=== PATIENT | female | born 1985 | race Two or more races ===

== ENCOUNTER 2022-10-28 15:22 | Emergency (ER) | payer BC, MEDICAID ==
[~2022-10-28] VITALS: Ht 160 cm; Wt 50.0 kg
[2022-10-28 15:29] VITALS: BP 149/93; PULSE 90; RESP 18; TEMP 98; O2SAT 98
[2022-10-29] MEDS ORDERED: NICO-630 TOP (04:46)
[2022-10-29] MEDS ORDERED: DIPH25CA83 PO (04:46)
== END 2022-10-28 16:48 | disposition left against medical advice (07) ==
LOC: ER 15:22
DX: R68.84 Jaw pain (principal); Z53.21 Procedure and treatment not carried out due to patient leaving prior to being seen by health care provider
CPT/HCPCS: 99281

== ENCOUNTER 2022-10-29 04:11 | Emergency (ER) | payer BC, MEDICAID ==
[~2022-10-29] VITALS: Ht 152.4 cm; Wt 34.8 kg
[2022-10-29 04:14] VITALS: BP 167/100; PULSE 97; RESP 16; TEMP 98.4; O2SAT 100
[2022-10-29] MEDS ORDERED: diphenhydrAMINE 25mg capsule PO ONE (04:45)
[2022-10-29] MEDS ORDERED: NICO-630 TOP (04:46)
[2022-10-29] MEDS ORDERED: DIPH25CA83 PO (04:46)
== END 2022-10-29 05:01 | disposition home or self-care (01) ==
LOC: ER 04:12
DX: G47.00 Insomnia, unspecified (principal); F32.A Depression, unspecified
CPT/HCPCS: 99282; Q0163

== ENCOUNTER 2022-11-02 20:28 | Emergency (ER) | payer BC, MEDICAID ==
[~2022-11-02] VITALS: Ht 152.4 cm; Wt 34.6 kg
[~2022-11-02 20:28] MED LIST: DIPH25CA83 PO; NICO-630 TOP
[2022-11-02 20:58] VITALS: BP 164/100; PULSE 83; TEMP 99; O2SAT 18
== END 2022-11-03 00:59 | disposition left against medical advice (07) ==
LOC: ER 20:28
DX: G47.00 Insomnia, unspecified (principal); Z53.21 Procedure and treatment not carried out due to patient leaving prior to being seen by health care provider
CPT/HCPCS: 99281

== ENCOUNTER 2022-11-06 22:10 | Emergency (ER) | payer BC, MEDICAID ==
[~2022-11-06] VITALS: Ht 152.4 cm; Wt 35.7 kg
[2022-11-06 22:18] VITALS: RESP 18; TEMP 98.6
[2022-11-07 03:40] VITALS: BP 125/85; PULSE 80; O2SAT 100
== END 2022-11-07 05:22 | disposition home or self-care (01) ==
LOC: ER 22:11
DX: M79.10 Myalgia, unspecified site (principal); R53.83 Other fatigue
CPT/HCPCS: 99281

== ENCOUNTER 2022-11-07 18:59 | Emergency (ER) | payer BC, MEDICAID ==
[~2022-11-07] VITALS: Ht 152.4 cm; Wt 35.8 kg
[2022-11-07 20:19] VITALS: BP 122/89; PULSE 74; RESP 16; TEMP 97.9; O2SAT 100
== END 2022-11-08 00:43 | disposition home or self-care (01) ==
LOC: ER 19:00
DX: M79.10 Myalgia, unspecified site (principal); R53.83 Other fatigue; Z00.8 Encounter for other general examination
CPT/HCPCS: 99281

== ENCOUNTER 2022-11-08 15:45 | Emergency (ER) | payer BC, MEDICAID | END 2022-11-08 17:22 | disposition left against medical advice (07) | LOC: ER 15:46 | DX: Z00.00 Encounter for general adult medical examination without abnormal findings (principal); Z53.21 Procedure and treatment not carried out due to patient leaving prior to being seen by health care provider ==

== ENCOUNTER 2023-09-03 14:51 | Emergency (ER) | payer BC, MEDICAID ==
[~2023-09-03] VITALS: Ht 152.4 cm; Wt 41.5 kg
[~2023-09-03 14:51] MED LIST changes: -NICO-630 TOP
[2023-09-03 15:25] VITALS: BP 141/100; PULSE 77; RESP 18; TEMP 97.5; O2SAT 98
[2023-09-03 17:20] LABS: BILIRUBIN,URINE NEGATIVE (Neg); CLARITY,URINE SLIGHTLY CLOUDY (Clear); COLOR,URINE YELLOW (Yellow); GLUCOSE, URINE NEGATIVE (Neg); KETONES,URINE NEGATIVE (Neg); LEUKOCYTE ESTERASE ,URINE SMALL (Neg); NITRITES, URINE NEGATIVE (Neg); OCCULT BLOOD,URINE TRACE-INTACT (Neg); PH,URINE 6.5 (4.8-8.0); PROTEIN,URINE NEGATIVE (Neg); UA COLLECTION TYPE CLN CATCH MIDSTREAM; UROBILINOGEN,URINE 0.2 E.U/dL (0.2-1.0)
[2023-09-03 17:21] LABS: URINE HCG NEGATIVE (NEG)
[2023-09-03 17:25] LABS: BACTERIA,URINE 3+ /HPF (Neg); RBC,URINE 0-2 /HPF (0-2); SQUAMOUS EPITHELIAL CELL,UR MANY /LPF (FEW); WBC,URINE 30-50 /HPF (0-4)
[2023-09-03] MEDS ORDERED: SULF1TAB45 PO (17:41)
== END 2023-09-03 18:16 | disposition home or self-care (01) ==
LOC: ER 14:52
DX: N39.0 Urinary tract infection, site not specified (principal); Z79.899 Other long term (current) drug therapy; Z79.2 Long term (current) use of antibiotics
CPT/HCPCS: 81001; 81025; 99283

== ENCOUNTER 2023-09-13 12:27 | Emergency (ER) | payer BC, MEDICAID ==
[~2023-09-13] VITALS: Ht 152.4 cm; Wt 39.3 kg
[~2023-09-13 12:27] MED LIST changes: +SULF1TAB45 PO
[2023-09-13 14:18] LABS: BILIRUBIN,URINE NEGATIVE (Neg); CLARITY,URINE SLIGHTLY CLOUDY (Clear); COLOR,URINE YELLOW (Yellow); GLUCOSE, URINE NEGATIVE (Neg); KETONES,URINE NEGATIVE (Neg); LEUKOCYTE ESTERASE ,URINE LARGE (Neg); NITRITES, URINE NEGATIVE (Neg); OCCULT BLOOD,URINE SMALL (Neg); PROTEIN,URINE NEGATIVE (Neg); UROBILINOGEN,URINE 0.2 E.U/dL (0.2-1.0)
[2023-09-13 14:26] LABS: UA COLLECTION TYPE NON-SPECIFIED
[2023-09-13 14:30] LABS: BACTERIA,URINE 3+ /HPF (Neg); WBC,URINE TNTC /HPF (0-4)
[2023-09-13 14:31] LABS: MUCUS STRANDS NONE SEEN /LPF (Neg); SQUAMOUS EPITHELIAL CELL,UR MANY /LPF (FEW); WBC CLUMPS,URINE MANY /HPF (NEGATIVE)
[2023-09-13] MEDS ORDERED: HYDR-3686 PO (14:31)
[2023-09-13] MEDS ORDERED: PHEN-824 PO (14:31)
[2023-09-13] MEDS: hydrOXYzine 25 MG tablet PO ONE (14:36)
[2023-09-13] MEDS: CefTRIAXone 1000mg IM Kit (w/lidocaine diluent) IM ONE (14:39)
[2023-09-13 14:44] VITALS: BP 133/62; PULSE 95; RESP 16; TEMP 98.9; O2SAT 98
== END 2023-09-13 14:47 | disposition home or self-care (01) ==
LOC: ER 12:27
DX: N39.0 Urinary tract infection, site not specified (principal); F41.9 Anxiety disorder, unspecified; Z79.899 Other long term (current) drug therapy
CPT/HCPCS: 81001; 96372; 99283; J0696; Q0177

== ENCOUNTER 2023-10-08 07:47 | Emergency (ER) | payer BC, MEDICAID ==
[~2023-10-08] VITALS: Ht 152.4 cm; Wt 37.7 kg
[~2023-10-08 07:47] MED LIST changes: +HYDR-3686 PO; +PHEN-824 PO; -SULF1TAB45 PO
[2023-10-08] MEDS ORDERED: QUET25TA PO (08:03)
[2023-10-08 08:51] VITALS: BP 140/86; PULSE 69; RESP 16; TEMP 98.6; O2SAT 100
== END 2023-10-08 08:53 | disposition home or self-care (01) ==
LOC: ER 07:48
DX: F20.0 Paranoid schizophrenia (principal); Z76.0 Encounter for issue of repeat prescription; Z79.899 Other long term (current) drug therapy
CPT/HCPCS: 99281

== ENCOUNTER 2023-10-12 20:10 | Emergency (ER) | payer BC, MEDICAID ==
[~2023-10-12] VITALS: Ht 152.4 cm; Wt 43.2 kg
[~2023-10-12 20:10] MED LIST changes: +QUET25TA PO
[2023-10-12 20:16] VITALS: BP 138/106; PULSE 93; RESP 18; TEMP 98.8; O2SAT 99
[2023-10-12] MEDS: LORazepam 1 MG tablet PO ONE (20:33)
== END 2023-10-12 20:43 | disposition home or self-care (01) ==
LOC: ER 20:11
DX: F41.9 Anxiety disorder, unspecified (principal); Z79.899 Other long term (current) drug therapy
CPT/HCPCS: 99281

== ENCOUNTER 2023-11-10 12:04 | Emergency (ER) | payer BC, MEDICAID ==
[~2023-11-10] VITALS: Ht 152.4 cm; Wt 36.0 kg
[2023-11-10 12:24] VITALS: BP 136/97; PULSE 90; RESP 16; TEMP 98.5; O2SAT 99
== END 2023-11-10 21:54 | disposition left against medical advice (07) ==
LOC: ER 12:05
DX: F41.9 Anxiety disorder, unspecified (principal); Z53.21 Procedure and treatment not carried out due to patient leaving prior to being seen by health care provider

== ENCOUNTER 2023-11-30 22:00 | Emergency (ER) | payer BC, MEDICAID ==
[~2023-11-30] VITALS: Ht 152.4 cm; Wt 35.5 kg
[2023-11-30 22:01] VITALS: BP 132/88; PULSE 94; TEMP 98.2; O2SAT 97
[2023-11-30] MEDS ORDERED: IBUP-1986 PO (22:25)
[2023-11-30] MEDS: acetaminophen 325mg tablet PO ONE (22:34)
[2023-11-30] MEDS: ibuprofen tablet 400 MG TABLET PO ONE (22:34)
[2023-11-30 22:35] VITALS: RESP 16
== END 2023-11-30 22:36 | disposition home or self-care (01) ==
LOC: ER 22:01
DX: M25.561 Pain in right knee (principal); G89.29 Other chronic pain; Z79.899 Other long term (current) drug therapy; Z88.8 Allergy status to other drugs, medicaments and biological substances
CPT/HCPCS: 99283